=== PATIENT | female | born 2000 | race Caucasian/White ===

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

== ENCOUNTER 2019-03-06 12:47 | Emergency (ER) | payer BC, MEDICAID ==
[~2019-03-06] VITALS: Wt 45.4 kg
[~2019-03-06 12:47] MED LIST: AMOX500C2 PO; IBUP-1561 PO
[2019-03-06 12:52] VITALS: BP 130/84; PULSE 79; RESP 18
--- NOTE | 2019-03-06 14:35 | ERD ---
ER Documentation Chief Complaint Chief Complaint l eyelid swelling for the past 2 days. no redness. no foreign body HPI This is a 18-year-old female who presents for 2 days of a bump over her left upper eyelid. She denies pain associated with this, she has had no redness around the eyelid. She has history of strabismus, and states that she has had to have surgery on this, chronically she states that her vision is "bad". And she states that she always sees squiggly lines along her eyes, most notable down her left eye. Since the appearance of this bump, the squiggly lines have increased. She has not seen an eye doctor recently. ROS All systems reviewed and are negative except as per history of present illness. Medications Home Meds Active Scripts Ibuprofen* (Motrin*) 400 Mg Tab, 400 MG PO Q6, #30 TAB Prov:YANCI OSWALD PA-C 08/09/18 Amoxicillin* (Amoxicillin*) 500 Mg Cap, 500 MG PO BID for 7 Days, CAP Prov:YANCI OSWALD PA-C 08/09/18 Ibuprofen* (Motrin*) 400 Mg Tab, 400 MG PO Q6, #30 TAB Prov:ARIES MOYA PA-C 07/30/18 Allergies Allergies: Coded Allergies: No Known Allergy (Unverified , 07/30/18) PMhx/Soc Hx Alcohol Use: No Hx Substance Use: No Hx Tobacco Use: No Physical Exam Vitals Vital Signs Date Temp Pulse Resp B/P (MAP) Pulse Ox O2 O2 Flow FiO2 Time Delivery Rate 03/06/19 97.9 79 18 130/84 99 12:52 (99) Physical Exam Const: Afebrile, nontoxic-appearing Head: Atraumatic Eyes: Normal conjunctiva, pupils equal round reactive to light, no conjunctival injection, funduscopic exam shows no papilledema. The left upper eyelid is no table for small mobile nontender mass, most consistent with a chalazion. ENT: Normal external ears, nose and mouth. Neck: Resp: Normal respiratory effort Cardio: Abd: Skin: Back: Ext: Neur: Awake and alert Psych: Normal mood and affect Procedures/MDM This is a 18-year-old female who presents for evaluation of a mass of her left upper eyelid which is not consistent with a chalazion. There is no evidence of infection. She also chronically states she has visual problems. I did not not note any evidence of a retinal detachment or a vitreous hemorrhage. Regarding the chalazion, I recommend supportive care. For the vision changes, the patient states that she has had multiple cancellations to see an eye doctor. I recommend that she follow-up with ophthalmology within 24 hours, she could go to all of you for further evaluation. The patient agreed to this at discharge she was in no distress. Limited Ocular Ultrasound performed by me: Indication: Eye/Vision complaint. Rule out foreign body Retina: No obvious detachment Vitreous: No obvious hemorrhage Interpretation: No evidence of retinal detachment or posterior vitreous hemorrhage Departure Diagnosis: Primary Impression: Chalazion Laterality: left Eyelid: upper Qualified Codes: H00.14 - Chalazion left upper eyelid Condition: Stable ZOË JONES MD Mar 06, 2019 14:35
== END 2019-03-06 15:17 | disposition home or self-care (01) ==
LOC: FTE 12:47
DX: H00.14 Chalazion left upper eyelid (principal)